=== PATIENT | male | born 1995 | race Caucasian/White ===

== ENCOUNTER 2022-03-19 10:26 | Outpatient (CLI) | payer OTHER ==
[2022-03-19 11:04] VITALS: BP 132/95
--- NOTE | 2022-03-19 11:04 | SLEEP CARE CONSULTATION ---
Information from patient questionnaire entered by Natalya Osborne MA. I have reviewed and concur with the information entered by Natalya Osborne MA. This document represents the service I personally performed and the decisions made by me, Cheryle Buckley ARNP. History of Present Illness Service Date and Time: 03/19/2022 1026 Reason for Visit: New patient (ONSET 08/24/2018, NO PRIORS, ) Chief Complaint: reports: Insomnia, Unrefreshed sleep, Snoring, Excessive day time sleepiness, Fatigue, Frequent awakenings at night Date of Onset: 3-4 YEARS Usual bedtime: 10 PM Time it takes to fall asleep: HOURS Snores at night: Yes Observed to quit breathing while asleep: No Sleeps alone due to snoring: No Number of times waking at night: 5-6 Reasons for waking at night: reports: Pain, Other (unknown reason, noise; heavy breathing occasionally). denies: Choking, Gasping for air Toss, Turn, or Twitch while sleeping: Yes Recalls having dreams: No Usually gets out of bed at: 0700 Feels refreshed in the morning: No Morning headache: Yes (6/7 days a week; last few hrs, 8-9 AM) Sleepy or fatigued during the day: Yes Ever fallen asleep while driving: No Takes day naps: Yes (3-4 times a week; 1-2 hrs but still aware of surroundings) Dreams during day naps: No Prior sleep studies: No Additional HPI information: I had the pleasure of seeing FANNY LARES today regarding the possibility of h erinn having a sleep disorder. His current complaints are Insomnia, Unrefreshed sleep, Snoring, Excessive daytime sleepiness, Fatigue, and Frequent awakenings at night. He states he has trouble getting to sleep and staying asleep. He is getting out of [place] soon and is trying to check out health. His partner has told him that he snores loudly but has not seen any pauses in breathing. He states he rarely wakes up feeling rested. He states it takes a bit in the morning after he has his coffee to feel awake. He lays down at 10 PM to go to sleep, does not clock watch but it takes a long time to go to sleep. He is trying to improve sleep hygiene with low lights, no screen time and listening to audiobooks. But, so far his sleep and feeling of restfulness in the morning is not improving. 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 Patient is Single and lives in . Have you smoked in the past 12 months: No Quit date: 2019 Alcohol use: Yes Alcohol amount and frequency: 2 X WEEKLY Caffeine use: Yes Caffeine amount and frequency: 2 X DAILY Family History Family history of sleep disordered breathing: No Family Hx Sleep Apnea: Grandparent: Snoring Allergies and Home Medications Known drug allergies: No Drug allergies reviewed: Yes (NKDA) Home medication list reviewed: Yes Allergy and home medication list: Medications: Ibuprofen, prn Hydrocodone, prn Tylenol, prn Review of Systems Weight gain over past 5 years: 40 lb Respiratory: reports: shortness of breath (occasional, no pattern) Gastrointestinal: denies: heartburn Neurological: reports: headaches. denies: head trauma Psychiatric: reports: anxiety, depression Ear/Nose/Throat: reports: wisdom teeth removed. denies: tonsillectomy Endocrine: reports: sluggishness, too hot or cold Musculoskeletal: reports: joint pain, neck pain, back pain Physical Exam Vital signs obtained and entered by: Darcy OSBORNE CMA AAGRISELDA Blood Pressure: 132/95 (RESP 22, PULSE 75, LEFT) Cuff size: wrist Heart Rate: 72 O2 Saturation: 97 (PAPER MASK) Height: 5 ft 11 in Weight: 204 lb (CLOTHES) Body Mass Index: 28.4 BMI Classification: Overweight Neck circumference: 14.5 (INCHES) Mouth and throat: narrow oropharynx Soft palate: long Hard palate: normal Uvula: normal Uvula visualization: 25% Mallampati Class III Tongue: enlarged in size with teeth beckford on lateral edges Tonsils: 1+ Neck: normal w/o lymphadenopathy or thyromegaly Heart: regular rate and rhythm Lungs: clear bilaterally Impression and Plan 1. Suspected Obstructive Sleep Apnea-Hypopnea Syndrome, as suggested by a history of loud and irregular snoring, morning headache, frequent awakening during the night, unrefreshed sleep, cognitive impairment, and excessive daytime sleepiness. Narrow oropharynx and obesity are common predisposing factors for obstructive sleep apnea-hypopnea syndrome. I recommend proceeding to polysomnography to confirm the diagnosis and to assess severity. If the patient has significant sleep disordered breathing, a manual CPAP titration study will also be performed to find the optimal treatment pressure. I informed the patient of what the sleep studies involve and after some discussion, obtained agreement to proceed. The pathophysiology of obstructive sleep apnea-hypopnea syndrome was discussed with the patient and health risks of cardiovascular and cerebrovascular disease if not treated. Risks of drowsy driving discussed in detail and patient advised to avoid long distance driving and to rack puller at the first sign of drowsiness. Patient agreed to plan. * Schedule polysomnography * Avoid long distance driving or driving when feeling sleepy. * Avoid alcohol, sedative and muscle relaxant around bedtime. * Attempt to lose weight. * Review instructions provided by trained office staff on how to prepare for the sleep study. * Return for follow-up after sleep study completed. Counseling Topics: Weight loss health impact Visit Type: In Office Time Spent with Patient (minutes): 38 Provider Statement: I spent 100% of the Face to Face Visit with the patient with greater than 50% spent counseling the patient and coordination of care.
== END 2022-03-19 10:27 | disposition home or self-care (01) ==
LOC: SC 10:26
PROVIDERS: ATTEND Nurse Practitioner Family
DX: R06.83 Snoring (principal); G47.8 Other sleep disorders; G47.10 Hypersomnia, unspecified; R53.83 Other fatigue; R51.9 Headache, unspecified; Z87.891 Personal history of nicotine dependence; E66.3 Overweight; Z68.28 Body mass index [BMI] 28.0-28.9, adult
CPT/HCPCS: 99203; 99212

== ENCOUNTER 2022-03-24 19:33 | Outpatient (CLI) | payer OTHER | END 2022-03-24 19:34 | disposition home or self-care (01) | LOC: SC 19:33 | PROVIDERS: ATTEND Nurse Practitioner Family | DX: R06.83 Snoring (principal); G47.8 Other sleep disorders; R51.9 Headache, unspecified; G47.10 Hypersomnia, unspecified; R53.83 Other fatigue | CPT/HCPCS: 95810 ==

== ENCOUNTER 2022-05-22 10:15 | Outpatient (CLI) | payer OTHER ==
[2022-05-22 10:58] VITALS: BP 110/78
--- NOTE | 2022-05-22 10:58 | SLEEP CARE CONSULTATION ---
Information from patient questionnaire entered by Tiana Murphy. I have reviewed and concur with the information entered by Tiana Murphy. This document represents the service I personally performed and the decisions made by , Cheryle Buckley ARNP. History of Present Illness Service Date and Time: 05/22/2022 1015 Initial [place] Sleepiness Scale score: 17 (03/19/2022) Current [place] Sleepiness Scale score: 17 (05/21/22) Additional HPI information: FANNY LARES returns for follow up and results of the recently performed polysomnography. The patient was informed of the following findings: No significant sleep disordered breathing with an average AHI of 0.7 and miguel oxygen saturation of 91%. Patient did not sleep supine during the study. I explained the pathophysiology behind obstructive sleep apnea. Patient does not have sleep apnea and was advised how weight gain could increase the risk of developing sleep apnea in the future. I strongly encouraged the patient to lose weight. Patient has light to moderate snoring. Snoring can be reduced by weight loss. Weight loss is best achieved with diet consult. Patient instructed to contact PCP for referral. Snoring can also be treated with an oral appliance from a dentist. Advised to check insurance coverage. In addition, an ENT evaluation can be do to see if other treatment is indicated. Patient counseled not drink alcohol less than 4 hours before bedtime as it can increase snoring and apnea. Patient was cautioned about risks of drowsy driving until sleepiness symptoms resolve. Patient denies drowsy driving. Sleep Study - Results Type of Sleep Study: Polysomnography (DONE 03/24/22) Prior sleep studies: No Allergies and Home Medications Home medication list reviewed: Yes (No changes) Review of Systems Review of systems same as previous: Yes (no changes) Physical Exam Vital signs obtained and entered by: GRISELDA OTERO Blood Pressure: 110/78 (left arm ) Cuff size: regular Heart Rate: 70 O2 Saturation: 97 Height: 5 ft 11 in Weight: 207 lb Body Mass Index: 28.8 BMI Classification: Overweight Impression and Plan 1. Snoring but no significant sleep disordered breathing. Patient advised that often weight loss will reduce snoring as well as apnea risk. An oral appliance can also be used for snoring. This would require a dental consultation. Patient cautioned not to use other online appliances as can cause bite issues. A list of accredited dentists in [facility] and one local dentist who makes oral appliances is available in office. Patient is advised to check if insurance will cover. An ENT consult can also be helpful to determine if any other treatment is an option. 2. Insomnia, sleep maintenance. Insomnia is generally caused by an irregular sleep schedule, spending too much time in bed, napping, caffeine, electronics, lack of a relaxing bedtime ritual and clock watching. Other factors can include anxiety/depression, pain, medications, and obstructive sleep apnea. First I counseled the patient on the importance of a regular sleep schedule, starting with the wake time. I explained the homestatic sleep drive and how maintaining a regular wake time will allow the patient to be tired enough to sleep 15-16 hours later. By waking at the same time, the patient will also feel more alert. This can also be assisted by exposure to bright light for a minimum of 15 minutes a day upon waking. Additionally too much time spent in bed can cause more sleep disruption as most people only need 7-9 hours of sleep. Thus patient advised to restrict time in bed to 7-8 hours. Naps are to be avoided unless overcome by sleepiness. Then naps are to be restricted to one hour and before 3 pm so as not to interfere with nighttime sleep. Most caffeine is to be stopped after lunch as it has a 6 hour half life and reduce sleep latency and efficiency. In addition, it is important to have a relaxing ritual about 30-60 minutes before bedtime to allow the mind/body transition from an active day to sleep. Electronics should be avoided 1-2 hours before bedtime as the bright light can reduce the endogenous melatonin and the activity of the computer, tablet, cell phone etc can be alerting. TV is okay but content needs to be relaxing and the brightness dimmed. A warm bath or shower is another way to assist transition to sleep. In addition, it is important to have a sleep environment conducive to sleep such as a comfortable bed, comfortable temperature and quiet. The alarm clock should be set and the face covered to prevent clock watching if awakened during the night. Knowing the time can cause anxiety and increase alertness and thinking about sleep time and preparation for the next day. Instead if awakened after sleep, the patient is to position for comfort or use bathroom and return to sleep. If unable to go to sleep in an estimated 20 minutes of more, it is advised to leave the bedroom and engage in a quiet activity until sleepy enough to return to bed. If unable to sleep due to things on the mind, it is recommended to write out the concerns or list to do as a release then return to a quiet activity until sleepy enough to return to bed. This is to be repeated as often as necessary to associate the bed with sleep and not frustration to get to sleep. Patient has been trying to so many of these things, working on his sleep hygiene for about 2 years without much improvement. He recently has been trying to get in behavioral health to deal with anxiety and depression issues. He was advised to continue his sleep hygiene as explained and pursuing help with anxiety and depression because these should help with his insomnia. He voiced understanding. He will follow up as needed. * Attempt to lose weight * Avoid alcohol consumption near bedtime * The patient is cautioned about driving until sleepiness is completely resolved. * Return as needed for follow up. Counseling Topics: Weight loss health impact Visit Type: In Office Time Spent with Patient (minutes): 21 Provider Statement: I spent 100% of the Face to Face Visit with the patient with greater than 50% spent counseling the patient and coordination of care.
== END 2022-05-22 10:16 | disposition home or self-care (01) ==
LOC: SC 10:15
PROVIDERS: ATTEND Nurse Practitioner Family
DX: R06.83 Snoring (principal); G47.09 Other insomnia; E66.3 Overweight; Z68.28 Body mass index [BMI] 28.0-28.9, adult
CPT/HCPCS: 99212; 99213